=== PATIENT | male | born 1935 | race Caucasian/White ===

== ENCOUNTER 2017-07-10 11:30 | Inpatient (IN) | payer MEDICARE, BC ==
[2017-07-16] MEDS ORDERED: Levofloxacin 500 mg/D5W 100 ml Premix Bag ONE (06:26)
[2017-07-16] MEDS ORDERED: Vancomycin HCl 1.5 GM in Sodium Chloride 0.9% 250 ML 300 ML IVPB SCH (06:30)
[2017-07-16 06:38] LABS: INR-International Normal Ratio 1.1; PTT 27.8 SEC (22.9-36.1); Prothrombin Time 14.4 SEC (12.0-14.7)
[2017-07-16] MEDS ORDERED: Midazolam HCl 2 mg/2 ml Vial ONE (06:48)
[2017-07-16] MEDS ORDERED: Fentanyl 100 MCG/2 ML VIAL ONE (06:48)
[2017-07-16] MEDS ORDERED: Tetracaine HCl/PF 1% 20 MG/2 ML AMP ONE (07:28)
[2017-07-16] MEDS ORDERED: Acetaminophen 500 MG TAB PO PRN (07:34)
[2017-07-16] MEDS ORDERED: HYDROcodone/Acetaminophen 7.5/325 mg Tablet PO PRN (07:34)
[2017-07-16] MEDS ORDERED: B & O PR PRN (07:39)
[2017-07-16] MEDS ORDERED: Promethazine HCl 25 MG/ML VIAL IM PRN (09:50)
[2017-07-16] MEDS ORDERED: Ondansetron HCl/PF 4 MG/2 ML Vial IVP PRN (09:50)
[2017-07-16] MEDS ORDERED: Promethazine HCl 25 MG/ML VIAL SLOW IVP PRN (09:50)
[2017-07-16] MEDS ORDERED: B & O ONE (09:52)
--- NOTE | 2017-07-16 10:38 | OP ---
DATE OF PROCEDURE: 07/16/2017 PREOPERATIVE DIAGNOSES: Urinary retention, bladder outlet obstruction, lower urinary tract symptoms. POSTOPERATIVE DIAGNOSES: Urinary retention, bladder outlet obstruction, lower urinary tract symptoms . PROCEDURE PERFORMED: Cystoscopy, TURP. SURGEON: Dr. Slim Awan. ANESTHESIA: Spinal. ESTIMATED BLOOD LOSS: Probably 100 mL. FINDINGS: He had very large lateral lobes, moderate median lobe, 2 ureteral orifices. No bladder tu mor, foreign body, or stone. He had numerous prosthetic calculi. DRAINS PLACED: A 22-[place] Urbina 3-way catheter with 60 mL and a 30 mL balloon. OPERATIVE TECHNIQUE: After obtaining written and verbal consent from the patient, after reviewing hi s preoperative blood work and after making sure he had his preoperative antibiotics of vancomycin and Levaquin, he was taken to the operating suite. He was placed in a supine position on the treatment table. PlexiPulses were placed on his lower extremities and turned on. He was given a spinal anesth etic and then returned back to the supine position. Once the spinal took effect, he was placed in th e dorsal lithotomy position and sterilely prepped and draped. Cystoscopy was performed with a 22-Fam nch sheath. This was well lubricated and passed under direct vision through the male urethra into th e bladder with aid of a video camera monitor and a 30-degree lens. The bladder was examined with bot h a 30- and 70-degree lenses. He had some debris on the floor. This was related to having indwellin g catheter for the past few weeks. This was washed out and the bladder was filled and emptied a numb er of times. A 24-[place] resectoscope sheath with visual obturator was passed under direct vision wi th a 30-degree lens after being well lubricated through the male urethra and into the bladder. An Ig lesQiro resectoscope with a gyrus generator, gyrus prostate loop, 30-degree lens, video camera monitor were used. Our landmarks, bladder neck, verumontanum, and ureteral orifices were identified. The m edian lobe was taken down from 5-7 o'clock position from bladder neck to just proximal to the verumon tanum down to capsular fibers. The left lobe was taken down from the 1 o'clock to the 5 o'clock posi tion with the same landmarks and the right lobe from the 11 o'clock to the 7 o'clock position. Apica l tissue was removed in half loop bites. Anterior tissue was not resected. We elliked out all clots and chips and stones, reinspected the bladder. No damage to the bladder neck or trigone, ureteral o rifices, verumontanum. We obtained hemostasis with electrocautery unit. Urbina catheter was placed w ith aid of a catheter guide with 60 mL placed in the balloon, was brought down on gentle traction, posada nd irrigated. It was clear. It was hooked up to continuous bladder irrigation. He was taken out of the dorsal lithotomy position. The catheter was secured to his right thigh and mild traction with V elcro leg strap. He was at this point transferred by a stretcher to the recovery room.
[2017-07-16] MEDS ORDERED: PHENYLEPHRINE-NS 100 MCG/ML 10 ML SYRINGE ONE (12:16)
[2017-07-16] MEDS: Losartan 25 MG TAB PO SCH (13:39)
[2017-07-16] MEDS: Finasteride 5 MG TAB PO SCH (13:40)
[2017-07-16] MEDS: Docusate 100 MG CAP PO SCH ×2 (13:40→20:24)
[2017-07-16] MEDS: Loratadine 10 MG TAB PO SCH (13:40)
[2017-07-16 13:48] VITALS: BMI 23.1
[2017-07-16] MEDS: D5 1/2 NS w/20 mEq KCL 1,000 ML IV SCH ×2 (17:49→20:24)
[2017-07-16] MEDS: Atorvastatin Calcium 40 MG TAB PO SCH (20:24)
[2017-07-17] MEDS: D5 1/2 NS w/20 mEq KCL 1,000 ML IV SCH ×2 (05:09→14:55)
[2017-07-17] MEDS ORDERED: Vancomycin HCl 1 GM in Premix Bag 1 BAG IVPB SCH (09:00)
[2017-07-17] MEDS: Losartan 25 MG TAB PO SCH (09:05)
[2017-07-17] MEDS: Docusate 100 MG CAP PO SCH ×2 (09:06→20:29)
[2017-07-17] MEDS: Loratadine 10 MG TAB PO SCH (09:06)
[2017-07-17] MEDS: Finasteride 5 MG TAB PO SCH (09:06)
[2017-07-17] MEDS ORDERED: Labetalol HCl 100 MG/20 ML VIAL SLOW IVP PRN (17:34)
[2017-07-17] MEDS: Atorvastatin Calcium 40 MG TAB PO SCH (20:29)
--- NOTE | 2017-07-17 20:48 | CON ---
DATE OF CONSULTATION: 07/17/2017 PRIMARY CARE PHYSICIAN: Dr. Carmona. REQUESTING PHYSICIAN: Dr. Slim Awan. REASON FOR CONSULTATION: Uncontrolled blood pressure. HISTORY OF PRESENT ILLNESS: Mr. Wall is a pleasant 81-year-old white male with history of hyper tension, hyperlipidemia, and paroxysmal atrial fibrillation with one episode in 2012, who was admitte d for BPH with urinary obstruction for TURP and cystoscopy. He is postop day #1 today. He has done well. His urine is cleared nicely and had his catheter remov ed earlier today. His blood pressure this morning was in the 170s systolic. He was given his normal losartan 100 mg, b ut through the day, his blood pressure steadily risen from the systolic 180s to 190s, then to 200s th is evening. He requested we see the patient for evaluation. The patient denies any discomfort. He states he takes his blood pressure at home regularly and on his losartan, his blood pressure stays in the 120s to 130s systolic. He denies any chest pain, no shortness of breath, no nausea, vomiting, diarrhea, constipation. No ot her discomforts. His at the bedside and corroborates the story. No other current complaints. PAST MEDICAL HISTORY: 1. Hypertension. 2. Hyperlipidemia. 3. Paroxysmal atrial fibrillation. He had an episode of atrial fibrillation in 08/2012, received an echocardiogram, and spontaneously converted. He was kept on Multaq until a few months ago and was t aken off that by Dr. Tang. 4. Benign prostatic hypertrophy as above. 5. Urinary retention due to benign prostatic hypertrophy. PAST SURGICAL HISTORY: Include colon polypectomy, appendectomy, cholecystectomy about 30 to 35 years ago, TURP on 07/16/[address] Fraire. HOME MEDICATIONS: 1. Losartan 100 mg p.o. daily. 2. Lipitor 40 mg p.o. at bedtime. 3. Zyrtec 10 mg p.o. daily. 4. Finasteride 5 mg daily. 5. Aspirin 81 mg daily, which has been off of for the last 2 months, anticipating procedures. ALLERGIES: PENICILLIN caused blistery welts back in 1948. FAMILY HISTORY: Significant for hypertension and coronary artery disease in his mother. No history of blood clotting or bleeding disorders. No immune dysfunction. SOCIAL HISTORY: Negative for habits x3. He is , monogamous. His accompanies him. REVIEW OF SYSTEMS: A 10-point review of systems was performed, negative for all other systems except as stated as per HPI. PHYSICAL EXAMINATION: VITAL SIGNS: Temperature 97.4, pulse 65, blood pressure currently last checked last documented 183/9 1; when I was called, it was 193/106 in the room and I was called for a systolic of 200; respiratory rate 20, satting 99% on room air. GENERAL: He is awake. He is alert. He is oriented x3, well-developed, well-nourished 81-year-old m tracey appears to be age appropriate. He is in no acute distress. HEENT: Normocephalic, atraumatic. Pupils are equal, round, reactive to light bilaterally. Mucous m embranes are moist. No visible lesion. No thrush. NECK: Supple. He has no lymphadenopathy, no JVD, no thyromegaly. He has normal carotid upstrokes. I do not appreciate bruit. LUNGS: Clear to auscultation bilaterally. No wheezes, no rales, no rhonchi. CARDIOVASCULAR: He has normal S1, S2. No S3 or S4. No audible murmurs. ABDOMEN: Soft, is nontender, nondistended, no mass, no organomegaly. EXTREMITIES: No cyanosis, no clubbing, no edema, 2+ peripheral pulses. LABORATORY DATA: Sodium 137, potassium 4.6, chloride 102, bicarbonate 28, BUN 22, creatinine 1.72, g lucose 93 and calcium 9.1 back on 07/10/2017. CBC on 07/10/2017, white blood cell count 7.5, hemoglo bin 11.1, hematocrit 32.7 and platelet count 340,000. INR is 1.1 yesterday. RADIOGRAPHIC STUDIES: None. ASSESSMENT AND PLAN: 1. Hypertension: Blood pressure certainly elevated. We will put him on p.r.n. labetalol q.3 hours 10 mg for systolic greater than 180 without. We will not add any oral agents at present this to see how his blood pressure does overnight. Hopefully, his blood pressure stays relatively controlled and will need to start another agent. 2. Hyperlipidemia, on Lipitor. We will continue. 3. History of paroxysmal atrial fibrillation, not currently on any medications. We will continue to watch. 4. Benign prostatic hyperplasia status post TURP. 5. Urinary retention status post TURP. 6. Acute kidney injury secondary to urinary retention. Per the patient, the creatinine has been imp roving. He has seen Dr. Cedeno in the past. Creatinine 1.72, recheck in the morning. Thank you very much for this consult. I will follow along with you.
[2017-07-18] MEDS: Finasteride 5 MG TAB PO SCH (08:32)
[2017-07-18] MEDS: Losartan 25 MG TAB PO SCH (08:32)
[2017-07-18] MEDS: Loratadine 10 MG TAB PO SCH (08:32)
[2017-07-18] MEDS: Docusate 100 MG CAP PO SCH (08:33)
[2017-07-18 09:11] VITALS: BP 151/82; TEMP 97.7
--- NOTE | 2017-07-18 12:44 | PDOC.PN ---
- Subjective Encounter Start Date: 07/18/17 Encounter Start Time: 10:20 Pt feel good today, urine clearer, no pain. denies f/C, no N/V/d/C. BP much improved overnight, SBP 150 before AM meds today 10 point ROS performed and neg for all systems except as per HPI - Objective MAR Reviewed: Yes Vital Signs & Weight: Vital Signs (12 hours) Temp Pulse Resp BP Pulse Ox 07/18/17 09:10 97.7 F 97 16 151/82 H 98 07/18/17 07:55 97.7 F 97 16 151/82 H 98 07/18/17 04:49 98.3 F 70 18 155/79 H 97 Weight Weight 175 lb I&O: 07/17/17 07/18/17 07/19/17 06:59 06:59 06:59 Intake Total 2850 4700 Output Total 3100 6425 Balance -250 -1720 Phys Exam - Physical Examination Constitutional: NAD HEENT: PERRLA, moist MMs, sclera anicteric, oral pharynx no lesions Neck: no nodes, no JVD, supple, full ROM Respiratory: no wheezing, no rales, no rhonchi, clear to auscultation bilateral Cardiovascular: RRR, no significant murmur, no rub Gastrointestinal: soft, non-tender, no distention, positive bowel sounds Musculoskeletal: no edema, pulses present Neurological: non-focal, normal sensation, moves all 4 limbs Lymphatic: no nodes Psychiatric: normal affect, A&O x 3 Skin: no rash, normal turgor, cap refill <2 seconds Dx/Plan (1) HTN (hypertension) Code(s): I10 - ESSENTIAL (PRIMARY) HYPERTENSION Status: Chronic Qualifiers: Hypertension type: essential hypertension Qualified Code(s): I10 - Essential (primary) hypertension (2) HLD (hyperlipidemia) Code(s): E78.5 - HYPERLIPIDEMIA, UNSPECIFIED Status: Chronic Qualifiers: Hyperlipidemia type: unspecified Qualified Code(s): E78.5 - Hyperlipidemia , unspecified (3) Anxiety Code(s): F41.9 - ANXIETY DISORDER, UNSPECIFIED Status: Chronic (4) BPH (benign prostatic hyperplasia) Code(s): N40.0 - BENIGN PROSTATIC HYPERPLASIA WITHOUT LOWER URINRY TRACT SYMP Status: Chronic Qualifiers: Lower urinary tract symptom presence: symptoms present Lower urinary tract symptom detail: urinary retention Qualified Code(s): N40.1 - Benign prostatic hyperplasia with lower urinary tract symptoms; R33.8 - Other retention of urine ; R33.8 - Other retention of urine (5) S/P TURP (status post transurethral resection of prostate) Code(s): Z90.79 - ACQUIRED ABSENCE OF OTHER GENITAL ORGAN(S) Status: Acute - Plan cont current plan of care * . no new meds. Okay to go home. continue daily Losartan.
== END 2017-07-18 11:54 | disposition home or self-care (01) | DRG 713 ==
LOC: SURG A 07-16 05:45 → EDSTATUS 07-16 11:30 → SURG A 07-16 12:11
PROVIDERS: ADMIT Urology; ATTEND Urology
PROC: 0VT08ZZ Resection of Prostate, Via Natural or Artificial Opening Endoscopic (ICD-10-PCS; principal; 2017-07-16)
DX: N40.1 Benign prostatic hyperplasia with lower urinary tract symptoms (principal); N17.9 Acute kidney failure, unspecified; N13.8 Other obstructive and reflux uropathy; R33.8 Other retention of urine; I10 Essential (primary) hypertension; E78.5 Hyperlipidemia, unspecified; F41.9 Anxiety disorder, unspecified; Z86.79 Personal history of other diseases of the circulatory system
CPT/HCPCS: 85610; 85730; 88305; J1956; J2250; J3010; J3370; J7050

== ENCOUNTER 2017-07-10 11:48 | Outpatient (CLI) | payer MEDICARE, BC ==
[2017-07-10 13:18] LABS: Hemoglobin 11.1 g/dL (14.0-18.0); Mean Corpuscular HGB CONC 33.7 g/dL (32.0-36.0); Mean Corpuscular Hemoglobin 31.4 pg (27.0-31.0); Mean Corpuscular Volume 93.2 fl (80.0-94.0); Mean Platelet Volume 5.9 fL (7.4-10.4); Platelet Count 340 thou/uL (130-400); RBC Distribution Width 11.5 % (11.5-14.5); Red Blood Cell (RBC) Count 3.53 mill/uL (4.70-6.10); White Blood Cell (WBC) Count 7.5 thou/uL (4.8-10.8)
[2017-07-10 13:48] LABS: Anion Gap 12 mmol/L (10-20); BUN (Urea Nitrogen) 22 mg/dL (8.4-25.7); Calc. Creatinine Clearance 0 mL/min (70-130); Calcium 9.1 mg/dL (7.8-10.44); Carbon Dioxide 28 mmol/L (23-31); Chloride 102 mmol/L (98-107); Estimated GFR-MDRD 38; Glucose 93 mg/dL (83-110); Potassium 4.6 mmol/L (3.5-5.1); Sodium 137 mmol/L (136-145)
--- NOTE | 2017-07-10 21:06 | EKG ---
Test Reason : Blood Pressure : / mmHG Vent. Rate : 062 BPM Atrial Rate : 062 BPM P-R Int : 186 ms QRS Dur : 094 ms QT Int : 428 ms P-R-T Axes : 062 054 073 degrees QTc Int : 434 ms Normal sinus rhythm with sinus arrhythmia Normal ECG No previous ECGs available Confirmed by DIMITRI SAENZ ([id number]) on 07/10/2017 9:05:49 PM Referred By: TREVON Confirmed By:DIMITRI SAENZ
== END 2017-07-10 11:49 | disposition home or self-care (01) ==
LOC: LABBT 11:48
PROVIDERS: ATTEND Urology
DX: Z01.818 Encounter for other preprocedural examination (principal); N32.0 Bladder-neck obstruction; R33.8 Other retention of urine
CPT/HCPCS: 80048; 85027; 93005; 93010

== ENCOUNTER 2022-09-05 07:25 | Outpatient (CLI) | payer MEDICARE, BC ==
[2022-09-05] MEDS ORDERED: Iopamidol-370 76% 500 ML MDV (1 ML CHARGE) ONE (09:35)
== END 2022-09-05 07:26 | disposition home or self-care (01) ==
LOC: CT 07:25
PROVIDERS: ATTEND Internal Medicine Cardiovascular Disease
DX: I71.21 Aneurysm of the ascending aorta, without rupture (principal); N28.89 Other specified disorders of kidney and ureter; E04.1 Nontoxic single thyroid nodule; I28.1 Aneurysm of pulmonary artery
CPT/HCPCS: 71275; 82565; Q9967

== ENCOUNTER 2024-06-10 22:11 | Inpatient (IN) | payer MEDICARE, BC ==
[2024-06-10 22:52] LABS: #Basophils Less than 0.03 10x3/uL (0.0-0.2); %Basophils 0.2 % (0.0-1.0); %Eosinophils 0.5 % (0.0-10.0); %Monocytes 7.4 % (0.0-10.0); %Neutrophils 74.1 % (42.0-75.0); Hemoglobin 11.6 g/dL (14.0-18.0); Mean Corpuscular HGB CONC 34.1 g/dL (32.0-36.0); Mean Corpuscular Hemoglobin 32.1 pg (27.0-31.0); Mean Corpuscular Volume 94.2 fL (78.0-98.0); Platelet Count 222 10x3/uL (130-400); Red Blood Cell (RBC) Count 3.61 mill/uL (4.70-6.10)
[2024-06-10 23:05] LABS: INR-International Normal Ratio 1.3; Prothrombin Time 16.4 sec (12.0-14.7)
[2024-06-10 23:08] LABS: ALT (SGPT) 33 U/L (8-55); AST (SGOT) 28 U/L (5-34); Albumin 3.5 g/dL (3.4-4.8); Alkaline Phosphatase 67 U/L (40-110); Anion Gap 15 mmol/L (10-20); BUN (Urea Nitrogen) 29 mg/dL (8.4-25.7); Bilirubin, Total 0.7 mg/dL (0.2-1.2); Calc. Creatinine Clearance 0 mL/min (70-130); Calcium 9.5 mg/dL (7.8-10.44); Carbon Dioxide 24 mmol/L (23-31); Chloride 102 mmol/L (98-107); Estimated GFR 62; Globulin 2.9 g/dL (2.4-3.5); Glucose 113 mg/dL (83-110); Lipase 33 U/L (8-78); Potassium 4.8 mmol/L (3.5-5.1); Protein, Total 6.4 g/dL (5.8-8.1); Sodium 136 mmol/L (136-145)
[2024-06-10 23:13] LABS: Troponin I 0.084 ng/mL (< 0.028)
[2024-06-10] MEDS ORDERED: Aspirin Chewable 81 MG TAB ONE (23:41)
[2024-06-10] MEDS ORDERED: dilTIAZem 25 MG/5 ML VIAL ONE (23:41)
[2024-06-10] MEDS ORDERED: dilTIAZem 125 MG/25 ML SDV ONE ×2 (23:42→23:46)
[2024-06-10] MEDS ORDERED: Sodium Chloride 0.9% 100 ML ONE (23:43)
[2024-06-11] MEDS ORDERED: Metoprolol Tartrate 5 MG (5 mL) VIAL ONE ×2 (01:03→02:02)
[2024-06-11] MEDS ORDERED: Insulin Lispro 100 UNIT/ML 10 ML VIAL SC PRN (01:54)
[2024-06-11] MEDS ORDERED: Dextrose 50% Abboject 50 ML SYRINGE SLOW IVP PRN (01:54)
[2024-06-11] MEDS ORDERED: Ondansetron PF 4 MG/2 ML Vial IVP PRN (01:54)
[2024-06-11] MEDS ORDERED: Glucagon 1 MG/ML KIT IM PRN (01:54)
[2024-06-11] MEDS ORDERED: traMADol HCl 50 MG TAB PO PRN (01:54)
[2024-06-11] MEDS ORDERED: Dextrose 5% in Water 1,000 ML IV PRN (01:54)
[2024-06-11] MEDS ORDERED: Calcium Carbonate 500 MG ChewTAB PO PRN (02:12)
[2024-06-11] MEDS ORDERED: Acetaminophen 650 MG Suppository PR PRN (02:12)
[2024-06-11] MEDS ORDERED: Ondansetron ODT 4 MG TAB PO PRN (02:12)
[2024-06-11] MEDS ORDERED: Furosemide 40 MG (4 mL) VIAL ONE (02:30)
[2024-06-11] MEDS ORDERED: Sodium Chloride 0.9% 100 ML ONE (02:30)
[2024-06-11] MEDS ORDERED: Piperacillin/Tazobactam 3.375 GM VIAL ONE (02:30)
[2024-06-11 03:38] LABS: #Basophils Less than 0.03 10x3/uL (0.0-0.2); #Eosinophils Less than 0.03 10x3/uL (0.0-0.7); %Basophils 0.2 % (0.0-1.0); %Eosinophils 0.2 % (0.0-10.0); %Lymphocytes 15.5 % (21.0-51.0); %Monocytes 7.1 % (0.0-10.0); %Neutrophils 76.5 % (42.0-75.0); Hematocrit 34.5 % (42.0-52.0); Hemoglobin 11.4 g/dL (14.0-18.0); Mean Corpuscular Hemoglobin 31.8 pg (27.0-31.0); Mean Corpuscular Volume 96.4 fL (78.0-98.0); Mean Platelet Volume 8.5 fL (7.4-10.4); Platelet Count 191 10x3/uL (130-400); RBC Distribution Width 12.9 % (11.5-14.5); Red Blood Cell (RBC) Count 3.58 mill/uL (4.70-6.10)
[2024-06-11 03:52] LABS: Anion Gap 11 mmol/L (10-20); BUN (Urea Nitrogen) 25 mg/dL (8.4-25.7); Calc. Creatinine Clearance 0 mL/min (70-130); Calcium 9.5 mg/dL (7.8-10.44); Carbon Dioxide 26 mmol/L (23-31); Chloride 103 mmol/L (98-107); Estimated GFR 62; Glucose 127 mg/dL (83-110); INR-International Normal Ratio 1.3; Potassium 4.2 mmol/L (3.5-5.1); Prothrombin Time 16.4 sec (12.0-14.7); Sodium 136 mmol/L (136-145)
[2024-06-11 03:53] VITALS: BMI 20.5
[2024-06-11 03:58] LABS: Troponin I 0.083 ng/mL (< 0.028)
[2024-06-11] MEDS: Metoprolol Tartrate 5 MG (5 mL) VIAL IVP SCH ×2 (04:39→08:56)
[2024-06-11 05:00] LABS: Troponin I 0.091 ng/mL (< 0.028)
[2024-06-11] MEDS: Famotidine 20 MG TAB PO SCH (08:13)
[2024-06-11] MEDS: Famotidine/PF 20 mg/2ml Vial SLOW IVP SCH (08:14)
[2024-06-11] MEDS: dilTIAZem 125 MG in Sodium Chloride 0.9% 100 ML IVPB SCH (08:31)
[2024-06-11] MEDS: Digoxin 0.5 MG/2 ML AMP SLOW IVP SCH (10:17)
[2024-06-11] MEDS: Acetaminophen 325 MG TAB PO PRN (10:45)
[2024-06-11 12:49] LABS: #Basophils Less than 0.03 10x3/uL (0.0-0.2); #Eosinophils Less than 0.03 10x3/uL (0.0-0.7); %Basophils 0.2 % (0.0-1.0); %Eosinophils 0.1 % (0.0-10.0); %Lymphocytes 10.2 % (21.0-51.0); %Monocytes 7.5 % (0.0-10.0); %Neutrophils 81.7 % (42.0-75.0); Hematocrit 34.1 % (42.0-52.0); Hemoglobin 11.5 g/dL (14.0-18.0); Mean Corpuscular HGB CONC 33.7 g/dL (32.0-36.0); Mean Corpuscular Hemoglobin 32.8 pg (27.0-31.0); Mean Corpuscular Volume 97.2 fL (78.0-98.0); Mean Platelet Volume 8.5 fL (7.4-10.4); Platelet Count 202 10x3/uL (130-400); Red Blood Cell (RBC) Count 3.51 mill/uL (4.70-6.10)
[2024-06-11] MEDS: Dronedarone HCl 400 MG TAB PO SCH ×2 (13:58)
[2024-06-11] MEDS ORDERED: Iopamidol-370 76% 500 ML MDV (1 ML CHARGE) ONE (15:31)
[2024-06-11 16:31] LABS: Hematocrit 37.6 % (42.0-52.0); Hemoglobin 12.3 g/dL (14.0-18.0)
[2024-06-12 03:53] LABS: Calc. Creatinine Clearance 35 mL/min (70-130); Estimated GFR 46
[2024-06-12 03:55] LABS: Anion Gap 13 mmol/L (10-20); BUN (Urea Nitrogen) 27 mg/dL (8.4-25.7); Carbon Dioxide 26 mmol/L (23-31); Chloride 102 mmol/L (98-107); Glucose 118 mg/dL (83-110); Magnesium 1.9 mg/dL (1.6-2.6); Potassium 3.7 mmol/L (3.5-5.1); Sodium 137 mmol/L (136-145)
[2024-06-12] MEDS: Dronedarone HCl 400 MG TAB PO SCH (08:42)
[2024-06-12] MEDS ORDERED: PROPOFOL 40 ML ONE (10:52)
[2024-06-12] MEDS ORDERED: Lidocaine 1% PF 5 ML VIAL ONE (11:13)
[2024-06-12] MEDS ORDERED: PHENYLEPHRINE-NS 100 MCG/ML 10 ML SYRINGE ONE (11:13)
[2024-06-12] MEDS ORDERED: Ondansetron HCl/PF 4 MG/2 ML Vial IVP PRN (11:32)
[2024-06-12] MEDS: Metoprolol Succinate XL 25 MG ER.TAB PO SCH (17:58)
[2024-06-12] MEDS: Apixaban 5 MG TAB PO SCH (20:45)
[2024-06-13 02:21] LABS: #Basophils 0.03 10x3/uL (0.0-0.2); %Basophils 0.3 % (0.0-1.0); %Eosinophils 2.6 % (0.0-10.0); %Lymphocytes 14.9 % (21.0-51.0); %Monocytes 8.2 % (0.0-10.0); %Neutrophils 73.5 % (42.0-75.0); Mean Corpuscular HGB CONC 33.3 g/dL (32.0-36.0); Mean Corpuscular Hemoglobin 32.3 pg (27.0-31.0); Mean Corpuscular Volume 96.8 fL (78.0-98.0); Mean Platelet Volume 8.6 fL (7.4-10.4); Platelet Count 204 10x3/uL (130-400); RBC Distribution Width 12.8 % (11.5-14.5)
[2024-06-13 03:10] LABS: Thyroid Stimulating Hormone 1.1425 uIU/mL (0.35-4.94)
[2024-06-13 03:41] LABS: ALT (SGPT) 22 U/L (8-55); AST (SGOT) 18 U/L (5-34); Albumin 2.7 g/dL (3.4-4.8); Alkaline Phosphatase 53 U/L (40-110); Anion Gap 11 mmol/L (10-20); BUN (Urea Nitrogen) 30 mg/dL (8.4-25.7); Bilirubin, Total 0.7 mg/dL (0.2-1.2); CK (CPK) 68 U/L (30-200); Calc. Creatinine Clearance 38 mL/min (70-130); Calcium 9.2 mg/dL (7.8-10.44); Carbon Dioxide 23 mmol/L (23-31); Cardiac Risk 2.2 (Less than 4.5); Chloride 105 mmol/L (98-107); Cholesterol 91 mg/dl (< 200 Desired); Estimated GFR 51; Globulin 2.8 g/dL (2.4-3.5); Glucose 101 mg/dL (83-110); HDL Cholesterol 41 mg/dL (>60 Neg Risk); LDL Cholesterol, Calculated 40 mg/dL; Protein, Total 5.5 g/dL (5.8-8.1); Sodium 135 mmol/L (136-145); Triglycerides 51 mg/dL (Less than 150)
[2024-06-13] MEDS: Metoprolol Succinate XL 25 MG ER.TAB PO SCH (07:47)
[2024-06-13] MEDS: Docusate 100 MG CAP PO SCH ×2 (12:50→20:08)
[2024-06-13 13:53] LABS: Syphilis Antibody Nonreactive (Nonreactive); Syphilis Antibody Index 0.06 S/CO (<1.00 Non-Reactive)
[2024-06-13] MEDS: Cyanocobalamin 1000 MCG/ML VIAL SC SCH (16:58)
[2024-06-13] MEDS: Metoprolol Tartrate 5 MG (5 mL) VIAL IVP SCH (22:14)
[2024-06-14] MEDS: Metoprolol Tartrate 5 MG (5 mL) VIAL IVP SCH (02:45)
[2024-06-14] MEDS: dilTIAZem 125 MG in Sodium Chloride 0.9% 100 ML IVPB SCH (04:10)
[2024-06-14 05:04] LABS: #Basophils 0.03 10x3/uL (0.0-0.2); %Basophils 0.3 % (0.0-1.0); %Eosinophils 3.2 % (0.0-10.0); %Lymphocytes 18.6 % (21.0-51.0); %Monocytes 7.4 % (0.0-10.0); %Neutrophils 70.1 % (42.0-75.0); Hematocrit 30.7 % (42.0-52.0); Hemoglobin 10.3 g/dL (14.0-18.0); Mean Corpuscular HGB CONC 33.6 g/dL (32.0-36.0); Mean Corpuscular Hemoglobin 31.6 pg (27.0-31.0); Mean Corpuscular Volume 94.2 fL (78.0-98.0); Mean Platelet Volume 8.5 fL (7.4-10.4); Platelet Count 242 10x3/uL (130-400); RBC Distribution Width 12.5 % (11.5-14.5); Red Blood Cell (RBC) Count 3.26 mill/uL (4.70-6.10)
[2024-06-14 05:21] LABS: Anion Gap 12 mmol/L (10-20); BUN (Urea Nitrogen) 28 mg/dL (8.4-25.7); Calc. Creatinine Clearance 40 mL/min (70-130); Calcium 9.4 mg/dL (7.8-10.44); Carbon Dioxide 23 mmol/L (23-31); Chloride 104 mmol/L (98-107); Estimated GFR 54; Glucose 106 mg/dL (83-110); Magnesium 2.1 mg/dL (1.6-2.6); Sodium 135 mmol/L (136-145)
[2024-06-14] MEDS: Acetaminophen/Codeine 30-300mg Tablet PO PRN (05:59)
[2024-06-14] MEDS ORDERED: Polyethylene Glycol 3350 17 GM Packet PO PRN (10:54)
[2024-06-14] MEDS: Magnesium 2 GM/50 ML(in water) 2 GM in Premix 1 BAG IVPB SCH (12:00)
[2024-06-14] MEDS: Folic Acid 1 MG TAB PO SCH (20:03)
[2024-06-14] MEDS: Multivit, Therapeutic 1 TAB PO SCH (20:03)
[2024-06-14] MEDS: Senokot S 8.6-50 MG TAB PO SCH (20:03)
[2024-06-14] MEDS: Cholecalciferol 1,000 UNITS (25 MCG) TAB PO SCH (20:03)
[2024-06-14] MEDS: Cyanocobalamin (Vitamin B-12) 1,000 MCG TAB PO SCH (20:03)
[2024-06-14] MEDS: dilTIAZem 30 MG TAB PO PRN (20:03)
[2024-06-15] MEDS: dilTIAZem 125 MG in Sodium Chloride 0.9% 100 ML IVPB SCH ×2 (01:18→12:39)
[2024-06-15 03:42] LABS: #Basophils 0.03 10x3/uL (0.0-0.2); %Basophils 0.3 % (0.0-1.0); %Eosinophils 3.2 % (0.0-10.0); %Lymphocytes 25.4 % (21.0-51.0); %Monocytes 8.2 % (0.0-10.0); %Neutrophils 62.4 % (42.0-75.0); Hematocrit 32.5 % (42.0-52.0); Hemoglobin 10.9 g/dL (14.0-18.0); Mean Corpuscular HGB CONC 33.5 g/dL (32.0-36.0); Mean Corpuscular Volume 95.3 fL (78.0-98.0); Mean Platelet Volume 8.6 fL (7.4-10.4); Platelet Count 284 10x3/uL (130-400); RBC Distribution Width 12.8 % (11.5-14.5); Red Blood Cell (RBC) Count 3.41 mill/uL (4.70-6.10)
[2024-06-15 04:00] LABS: Anion Gap 13 mmol/L (10-20); BUN (Urea Nitrogen) 37 mg/dL (8.4-25.7); Calc. Creatinine Clearance 35 mL/min (70-130); Calcium 9.1 mg/dL (7.8-10.44); Carbon Dioxide 24 mmol/L (23-31); Chloride 106 mmol/L (98-107); Estimated GFR 46; Glucose 104 mg/dL (83-110); Potassium 4.5 mmol/L (3.5-5.1); Sodium 138 mmol/L (136-145)
[2024-06-15] MEDS: Polyethylene Glycol 3350 17 GM Packet PO SCH (11:19)
[2024-06-15] MEDS: Senokot S 8.6-50 MG TAB PO SCH ×2 (11:19→21:49)
[2024-06-15] MEDS: dilTIAZem 30 MG TAB PO SCH (11:44)
[2024-06-15] MEDS: Digoxin 0.5 MG/2 ML AMP SLOW IVP SCH (12:38)
[2024-06-15] MEDS ORDERED: Bisacodyl 10 MG SUPP PR SCH (21:00)
[2024-06-15] MEDS: Bisacodyl 10 MG SUPP PR SCH (21:49)
[2024-06-16 04:48] LABS: #Basophils 0.03 10x3/uL (0.0-0.2); %Basophils 0.3 % (0.0-1.0); %Eosinophils 3.1 % (0.0-10.0); %Lymphocytes 21.3 % (21.0-51.0); %Monocytes 7.5 % (0.0-10.0); %Neutrophils 67.2 % (42.0-75.0); Hematocrit 29.3 % (42.0-52.0); Mean Corpuscular HGB CONC 34.1 g/dL (32.0-36.0); Mean Corpuscular Hemoglobin 32.1 pg (27.0-31.0); Mean Corpuscular Volume 93.9 fL (78.0-98.0); Mean Platelet Volume 8.4 fL (7.4-10.4); Platelet Count 266 10x3/uL (130-400); RBC Distribution Width 12.6 % (11.5-14.5); Red Blood Cell (RBC) Count 3.12 mill/uL (4.70-6.10)
[2024-06-16 06:12] LABS: Anion Gap 10 mmol/L (10-20); BUN (Urea Nitrogen) 39 mg/dL (8.4-25.7); Calc. Creatinine Clearance 40 mL/min (70-130); Calcium 9.1 mg/dL (7.8-10.44); Carbon Dioxide 24 mmol/L (23-31); Chloride 104 mmol/L (98-107); Estimated GFR 50; Glucose 97 mg/dL (83-110); Magnesium 2.2 mg/dL (1.6-2.6); Potassium 4.5 mmol/L (3.5-5.1); Sodium 133 mmol/L (136-145)
[2024-06-16] MEDS: Furosemide 20 MG TAB PO SCH (11:00)
[2024-06-16] MEDS: Polyethylene Glycol 3350 17 GM Packet PO SCH (11:43)
[2024-06-16] MEDS: Potassium Chloride 20 MEQ TAB PO SCH (11:43)
[2024-06-16 12:22] VITALS: TEMP 98.2
[2024-06-16 14:03] VITALS: BP 130/62
[2024-06-16] MEDS: Losartan 25 MG TAB PO SCH (14:55)
[2024-06-16] MEDS ORDERED: Polyethylene Glycol 3350 17 GM Packet PO SCH (21:00)
== END 2024-06-16 15:56 | DRG 280 ==
LOC: ERS 22:11 → IMCU/EMU 06-11 02:15 → 2NO 06-13 21:23
PROVIDERS: ADMIT Student in an Organized Health Care Education/Training Program; ATTEND Internal Medicine
PROC: 5A2204Z Restoration of Cardiac Rhythm, Single (ICD-10-PCS; principal; 2024-06-12)
PROC: B245ZZ4 Ultrasonography of Left Heart, Transesophageal (ICD-10-PCS; 2024-06-13)
DX: I48.91 Unspecified atrial fibrillation (principal); G93.41 Metabolic encephalopathy; I21.A1 Myocardial infarction type 2; E44.0 Moderate protein-calorie malnutrition; N17.9 Acute kidney failure, unspecified; W19.XXXA Unspecified fall, initial encounter; Z79.01 Long term (current) use of anticoagulants; E78.5 Hyperlipidemia, unspecified; M62.89 Other specified disorders of muscle; N18.9 Chronic kidney disease, unspecified; I12.9 Hypertensive chronic kidney disease with stage 1 through stage 4 chronic kidney disease, or unspecified chronic kidney disease; Z68.22 Body mass index [BMI] 22.0-22.9, adult; Z88.0 Allergy status to penicillin; Z79.890 Hormone replacement therapy; Z79.891 Long term (current) use of opiate analgesic; Z79.82 Long term (current) use of aspirin; Z79.899 Other long term (current) drug therapy
CPT/HCPCS: 36415; 36416; 70450; 71045; 71275; 72125; 72170; 74177; 80048; 80053; 80061; 82550; 82607; 83605; 83690; 83735; 83880; 84443; 84484; 85025; 85610; 85730; 86780; 92960; 93005; 93010; 93312; 96374; 96375; 96376; J1160; J1940; J2543; J2704; J3420; J3475; J3490; Q9967

== ENCOUNTER 2024-06-18 12:24 | Inpatient (IN) | payer MEDICARE, BC ==
[2024-06-18] MEDS ORDERED: dilTIAZem 125 MG/25 ML SDV ONE (12:57)
[2024-06-18] MEDS ORDERED: Acetaminophen 500 MG TAB ONE (12:59)
[2024-06-18 13:03] LABS: #Basophils 0.05 10x3/uL (0.0-0.2); %Basophils 0.4 % (0.0-1.0); %Eosinophils 1.2 % (0.0-10.0); %Lymphocytes 19.6 % (21.0-51.0); %Monocytes 7.6 % (0.0-10.0); %Neutrophils 70.4 % (42.0-75.0); Hemoglobin 11.9 g/dL (14.0-18.0); Mean Corpuscular Hemoglobin 32.1 pg (27.0-31.0); Mean Corpuscular Volume 94.3 fL (78.0-98.0); Mean Platelet Volume 8.3 fL (7.4-10.4); Platelet Count 418 10x3/uL (130-400); RBC Distribution Width 12.8 % (11.5-14.5); Red Blood Cell (RBC) Count 3.71 mill/uL (4.70-6.10)
[2024-06-18 13:20] LABS: ALT (SGPT) 23 U/L (8-55); AST (SGOT) 19 U/L (5-34); Albumin 2.9 g/dL (3.4-4.8); Alkaline Phosphatase 74 U/L (40-110); Anion Gap 13 mmol/L (10-20); BUN (Urea Nitrogen) 40 mg/dL (8.4-25.7); Bilirubin, Total 1.1 mg/dL (0.2-1.2); Calc. Creatinine Clearance 0 mL/min (70-130); Calcium 9.2 mg/dL (7.8-10.44); Carbon Dioxide 23 mmol/L (23-31); Chloride 99 mmol/L (98-107); Estimated GFR 49; Globulin 3.2 g/dL (2.4-3.5); Glucose 107 mg/dL (83-110); Magnesium 2.4 mg/dL (1.6-2.6); Potassium 4.6 mmol/L (3.5-5.1); Protein, Total 6.1 g/dL (5.8-8.1); Sodium 130 mmol/L (136-145)
[2024-06-18 13:21] LABS: INR-International Normal Ratio 1.5; PTT 39.1 sec (22.9-36.1); Prothrombin Time 18.3 sec (12.0-14.7)
[2024-06-18 13:30] LABS: Troponin I 0.092 ng/mL (< 0.028)
[2024-06-18 16:51] LABS: Troponin I 0.092 ng/mL (< 0.028)
[2024-06-18 17:08] VITALS: BMI 21.7
[2024-06-18] MEDS ORDERED: Ondansetron ODT 4 MG TAB PO PRN (17:36)
[2024-06-18] MEDS ORDERED: Loperamide HCl 2 MG CAP PO PRN ×2 (17:36)
[2024-06-18] MEDS ORDERED: Ondansetron PF 4 MG/2 ML Vial IVP PRN (17:36)
[2024-06-18] MEDS ORDERED: Acetaminophen 650 MG Suppository PR PRN (17:36)
[2024-06-18] MEDS ORDERED: traMADol HCl 50 MG TAB PO PRN (17:36)
[2024-06-18 18:26] LABS: Bacteria/HPF None Seen HPF (None Seen); Bilirubin Negative (Negative); Blood, Urine Negative (Negative); CAUTI Indications for Culture Dysuria,urgency,freq; Clarity Clear (Clear); Glucose, Urine (Dipstick) Normal (Negative); Ketone, Urine Negative (Negative); Leukocyte Negative Leu/uL (Negative); Nitrite Negative (Negative); Protein, Urine (Dipstick) Negative (Neg-Trace); RBC/HPF 0-3 HPF (0-3); Specific Gravity, Urine 1.014 (1.002-1.036); Squamous Epithelial 0-3 HPF (0-3); Urobilinogen Normal mg/dL (Less than 2); WBC/HPF 0-3 HPF (0-3); pH, Urine 6.5 (5.0-9.0)
[2024-06-18 18:29] LABS: Urine Culture Reflex No No
[2024-06-18 19:43] LABS: Troponin I 0.081 ng/mL (< 0.028)
[2024-06-18] MEDS: Acetaminophen 325 MG TAB PO PRN (20:37)
[2024-06-18] MEDS: Atorvastatin Calcium 40 MG TAB PO SCH (20:38)
[2024-06-18] MEDS: Apixaban 5 MG TAB PO SCH (20:38)
[2024-06-18] MEDS: Famotidine 20 MG TAB PO SCH (20:38)
[2024-06-18] MEDS: Multivit, Therapeutic 1 TAB PO SCH (20:38)
[2024-06-19 04:46] LABS: #Basophils 0.03 10x3/uL (0.0-0.2); %Basophils 0.3 % (0.0-1.0); %Eosinophils 2.1 % (0.0-10.0); %Lymphocytes 22.9 % (21.0-51.0); %Monocytes 7.7 % (0.0-10.0); Hematocrit 30.8 % (42.0-52.0); Hemoglobin 10.7 g/dL (14.0-18.0); Mean Corpuscular HGB CONC 34.7 g/dL (32.0-36.0); Mean Corpuscular Hemoglobin 32.2 pg (27.0-31.0); Mean Corpuscular Volume 92.8 fL (78.0-98.0); Mean Platelet Volume 8.5 fL (7.4-10.4); Platelet Count 389 10x3/uL (130-400); RBC Distribution Width 12.8 % (11.5-14.5); Red Blood Cell (RBC) Count 3.32 mill/uL (4.70-6.10)
[2024-06-19 05:19] LABS: Anion Gap 10 mmol/L (10-20); BUN (Urea Nitrogen) 35 mg/dL (8.4-25.7); Calc. Creatinine Clearance 46 mL/min (70-130); Calcium 8.9 mg/dL (7.8-10.44); Carbon Dioxide 22 mmol/L (23-31); Chloride 101 mmol/L (98-107); Estimated GFR 60; Glucose 102 mg/dL (83-110); Potassium 4.3 mmol/L (3.5-5.1); Sodium 129 mmol/L (136-145)
[2024-06-19] MEDS ORDERED: Metoprolol Succinate XL 25 MG ER.TAB PO SCH (09:00)
[2024-06-19] MEDS: Dronedarone HCl 400 MG TAB PO SCH (09:01)
[2024-06-19] MEDS: Metoprolol Succinate XL 25 MG ER.TAB PO SCH (09:02)
[2024-06-19] MEDS: dilTIAZem 125 MG in Sodium Chloride 0.9% 100 ML IVPB SCH ×2 (14:54→23:52)
[2024-06-19] MEDS: Amiodarone 450 MG in Dextrose 5% in Water 250 ML IVPB SCH (18:53)
[2024-06-20 05:25] LABS: #Basophils 0.04 10x3/uL (0.0-0.2); %Basophils 0.3 % (0.0-1.0); %Eosinophils 1.5 % (0.0-10.0); %Lymphocytes 20.3 % (21.0-51.0); %Monocytes 6.9 % (0.0-10.0); %Neutrophils 70.1 % (42.0-75.0); Hematocrit 28.8 % (42.0-52.0); Hemoglobin 10.2 g/dL (14.0-18.0); Mean Corpuscular HGB CONC 35.4 g/dL (32.0-36.0); Mean Corpuscular Hemoglobin 32.4 pg (27.0-31.0); Mean Corpuscular Volume 91.4 fL (78.0-98.0); Mean Platelet Volume 8.2 fL (7.4-10.4); Platelet Count 374 10x3/uL (130-400); RBC Distribution Width 12.9 % (11.5-14.5); Red Blood Cell (RBC) Count 3.15 mill/uL (4.70-6.10)
[2024-06-20 05:43] LABS: Anion Gap 9 mmol/L (10-20); BUN (Urea Nitrogen) 35 mg/dL (8.4-25.7); Calc. Creatinine Clearance 39 mL/min (70-130); Carbon Dioxide 23 mmol/L (23-31); Chloride 100 mmol/L (98-107); Estimated GFR 50; Glucose 101 mg/dL (83-110); Potassium 4.2 mmol/L (3.5-5.1); Sodium 128 mmol/L (136-145)
[2024-06-20] MEDS: Famotidine 20 MG TAB PO SCH (08:54)
[2024-06-20] MEDS: Polyethylene Glycol 3350 17 GM Packet PO SCH (08:54)
[2024-06-20] MEDS: Senokot S 8.6-50 MG TAB PO SCH (08:54)
[2024-06-20] MEDS: Cyanocobalamin (Vitamin B-12) 1,000 MCG TAB PO SCH (08:54)
[2024-06-20] MEDS ORDERED: Polyethylene Glycol 3350 17 GM Packet PO PRN (11:13)
[2024-06-20] MEDS: Sodium Chloride 1 GM TAB PO SCH (12:22)
[2024-06-20] MEDS ORDERED: Electrolyte Replacement Protocol FS PRN (13:15)
[2024-06-20] MEDS: Electrolyte Replacement Protocol 1 EACH FS ONE (14:57)
[2024-06-20] MEDS: Melatonin 3 MG TAB PO SCH (21:54)
[2024-06-21 05:12] LABS: #Basophils 0.03 10x3/uL (0.0-0.2); %Basophils 0.3 % (0.0-1.0); %Eosinophils 1.8 % (0.0-10.0); %Monocytes 7.6 % (0.0-10.0); %Neutrophils 64.4 % (42.0-75.0); Hematocrit 30.6 % (42.0-52.0); Hemoglobin 10.6 g/dL (14.0-18.0); Mean Corpuscular HGB CONC 34.6 g/dL (32.0-36.0); Mean Corpuscular Hemoglobin 31.8 pg (27.0-31.0); Mean Corpuscular Volume 91.9 fL (78.0-98.0); Mean Platelet Volume 8.4 fL (7.4-10.4); Platelet Count 427 10x3/uL (130-400); RBC Distribution Width 13.1 % (11.5-14.5); Red Blood Cell (RBC) Count 3.33 mill/uL (4.70-6.10)
[2024-06-21 05:36] LABS: Anion Gap 9 mmol/L (10-20); BUN (Urea Nitrogen) 33 mg/dL (8.4-25.7); Calc. Creatinine Clearance 41 mL/min (70-130); Calcium 9.1 mg/dL (7.8-10.44); Carbon Dioxide 23 mmol/L (23-31); Chloride 102 mmol/L (98-107); Estimated GFR 53; Glucose 107 mg/dL (83-110); Magnesium 2.1 mg/dL (1.6-2.6); Potassium 4.1 mmol/L (3.5-5.1); Sodium 130 mmol/L (136-145)
[2024-06-22 05:00] LABS: Anion Gap 11 mmol/L (10-20); BUN (Urea Nitrogen) 36 mg/dL (8.4-25.7); Calc. Creatinine Clearance 40 mL/min (70-130); Calcium 8.8 mg/dL (7.8-10.44); Carbon Dioxide 21 mmol/L (23-31); Chloride 101 mmol/L (98-107); Estimated GFR 50; Glucose 100 mg/dL (83-110); Potassium 4.3 mmol/L (3.5-5.1); Sodium 129 mmol/L (136-145)
[2024-06-22] MEDS: Magnesium 2 GM/50 ML(in water) 2 GM in Premix 1 BAG IVPB SCH (08:04)
[2024-06-23 04:55] LABS: Anion Gap 9 mmol/L (10-20); BUN (Urea Nitrogen) 34 mg/dL (8.4-25.7); Calc. Creatinine Clearance 37 mL/min (70-130); Calcium 8.8 mg/dL (7.8-10.44); Carbon Dioxide 24 mmol/L (23-31); Chloride 101 mmol/L (98-107); Estimated GFR 46; Glucose 101 mg/dL (83-110); Magnesium 2.2 mg/dL (1.6-2.6); Potassium 4.3 mmol/L (3.5-5.1); Sodium 130 mmol/L (136-145)
[2024-06-23] MEDS ORDERED: PROPOFOL 200 MG/20 ML VIAL ONE (08:36)
[2024-06-23] MEDS ORDERED: Lidocaine 1% PF 5 ML VIAL ONE (08:36)
[2024-06-23] MEDS: Amiodarone 200 MG TAB PO SCH (09:39)
[2024-06-23] MEDS: Amlodipine 5 MG TAB PO SCH (16:30)
[2024-06-24 04:44] LABS: Anion Gap 12 mmol/L (10-20); BUN (Urea Nitrogen) 35 mg/dL (8.4-25.7); Calc. Creatinine Clearance 36 mL/min (70-130); Calcium 8.9 mg/dL (7.8-10.44); Carbon Dioxide 24 mmol/L (23-31); Chloride 101 mmol/L (98-107); Estimated GFR 44; Glucose 91 mg/dL (83-110); Magnesium 2.1 mg/dL (1.6-2.6); Potassium 4.2 mmol/L (3.5-5.1); Sodium 133 mmol/L (136-145)
[2024-06-24] MEDS: Amlodipine 5 MG TAB PO SCH (09:14)
[2024-06-24 13:46] VITALS: BMI 21.8
[2024-06-25 05:10] LABS: Anion Gap 11 mmol/L (10-20); BUN (Urea Nitrogen) 30 mg/dL (8.4-25.7); Calc. Creatinine Clearance 41 mL/min (70-130); Calcium 9.4 mg/dL (7.8-10.44); Carbon Dioxide 24 mmol/L (23-31); Chloride 102 mmol/L (98-107); Estimated GFR 52; Glucose 92 mg/dL (83-110); Magnesium 2.1 mg/dL (1.6-2.6); Potassium 4.1 mmol/L (3.5-5.1); Sodium 133 mmol/L (136-145)
[2024-06-26 05:16] LABS: Anion Gap 10 mmol/L (10-20); BUN (Urea Nitrogen) 31 mg/dL (8.4-25.7); Calc. Creatinine Clearance 41 mL/min (70-130); Calcium 9.1 mg/dL (7.8-10.44); Carbon Dioxide 24 mmol/L (23-31); Chloride 104 mmol/L (98-107); Estimated GFR 51; Glucose 105 mg/dL (83-110); Magnesium 2.1 mg/dL (1.6-2.6); Potassium 4.1 mmol/L (3.5-5.1); Sodium 134 mmol/L (136-145)
[2024-06-26 11:51] VITALS: BP 126/62; TEMP 97.5
== END 2024-06-26 11:57 | DRG 309 ==
LOC: ERS 12:24 → IMCU/EMU 16:53 → 2NO 06-23 19:35
PROVIDERS: ADMIT Family Medicine; ATTEND Hospitalist
PROC: 5A2204Z Restoration of Cardiac Rhythm, Single (ICD-10-PCS; principal; 2024-06-23)
DX: I48.21 Permanent atrial fibrillation (principal); E44.0 Moderate protein-calorie malnutrition; E87.1 Hypo-osmolality and hyponatremia; I24.89 Other forms of acute ischemic heart disease; N18.31 Chronic kidney disease, stage 3a; I12.9 Hypertensive chronic kidney disease with stage 1 through stage 4 chronic kidney disease, or unspecified chronic kidney disease; Z90.49 Acquired absence of other specified parts of digestive tract; Z98.890 Other specified postprocedural states; Z66 Do not resuscitate; N40.0 Benign prostatic hyperplasia without lower urinary tract symptoms; Z79.899 Other long term (current) drug therapy; Z88.0 Allergy status to penicillin; Z79.01 Long term (current) use of anticoagulants; E78.00 Pure hypercholesterolemia, unspecified; D63.1 Anemia in chronic kidney disease
CPT/HCPCS: 36415; 36416; 71045; 80048; 80053; 81001; 83735; 83880; 84443; 84484; 85025; 85610; 85730; 92960; 93005; 96365; 96376; J0282; J2704; J3475; J7070

== ENCOUNTER → 2024-12-31 | Day surgery (SDC) | payer MEDICARE, BC ==
[~2024-12-31] MED LIST: Lidocaine 1% w/Epinephrine 1:100K 20 ML VIAL ONE; Sodium Bicarbonate 2.5 MEQ/5 ML SDV ONE
[2024-12-31 08:47] LABS: #Basophils 0.06 10x3/uL (0.0-0.2); #Eosinophils 0.58 10x3/uL (0.0-0.7); #Monocytes 0.74 10x3/uL (0.11-0.59); #Neutrophils 5.42 10x3/uL (1.40-6.50); %Basophils 0.6 % (0.0-1.0); %Eosinophils 5.7 % (0.0-10.0); %Lymphocytes 32.7 % (21.0-51.0); %Monocytes 7.3 % (0.0-10.0); %Neutrophils 53.3 % (42.0-75.0); Hematocrit 37.3 % (42.0-52.0); Hemoglobin 12.5 g/dL (14.0-18.0); Mean Corpuscular Hemoglobin 33.2 pg (27.0-31.0); Mean Corpuscular Volume 98.9 fL (78.0-98.0); Platelet Count 202 10x3/uL (130-400); Red Blood Cell (RBC) Count 3.77 mill/uL (4.70-6.10); White Blood Cell (WBC) Count 10.17 10x3/uL (4.8-10.8)
[2024-12-31 09:04] LABS: INR-International Normal Ratio 1.1; PTT 30.2 sec (22.9-36.1); Prothrombin Time 14.2 sec (12.0-14.7)
== END ==
LOC: CT 08:25
PROVIDERS: ATTEND Radiology Radiation Oncology
PROC: 0QB03ZX Excision of Lumbar Vertebra, Percutaneous Approach, Diagnostic (ICD-10-PCS; principal; 2024-12-31)
DX: C41.2 Malignant neoplasm of vertebral column (principal); I10 Essential (primary) hypertension; Z90.49 Acquired absence of other specified parts of digestive tract; Z88.0 Allergy status to penicillin; I48.91 Unspecified atrial fibrillation
CPT/HCPCS: 20225; 36000; 77012 ×2; 85025; 85610; 85730; 88333; J2250; 36415; 88305; 88341; 88342; 99152; 99153; J3010

== ENCOUNTER 2025-01-28 13:38 | Outpatient (CLI) | payer MEDICARE, BC ==
[2025-01-30 08:28] LABS: Estimated GFR - POC 36.0
== END 2025-01-28 13:39 | disposition home or self-care (01) ==
LOC: MRI 13:38
PROVIDERS: ATTEND Radiology Radiation Oncology
DX: C79.51 Secondary malignant neoplasm of bone (principal); M89.9 Disorder of bone, unspecified; M48.061 Spinal stenosis, lumbar region without neurogenic claudication; M48.8X6 Other specified spondylopathies, lumbar region
CPT/HCPCS: 36415; 72158; 82565

== ENCOUNTER 2025-04-06 14:29 | Outpatient (CLI) | payer MEDICARE, BC ==
[~2025-04-06 14:29] MED LIST changes: +Iopamidol 370 76% 100 ML VIAL ONE; -Lidocaine 1% w/Epinephrine 1:100K 20 ML VIAL ONE; -Sodium Bicarbonate 2.5 MEQ/5 ML SDV ONE
[2025-04-06 14:49] LABS: Estimated GFR - POC 31.0
== END 2025-04-06 14:30 | disposition home or self-care (01) ==
LOC: CT 14:29
PROVIDERS: ATTEND Nurse Practitioner Family
DX: I77.810 Thoracic aortic ectasia (principal); I71.21 Aneurysm of the ascending aorta, without rupture; N28.89 Other specified disorders of kidney and ureter
CPT/HCPCS: 36415; 71275; 82565; Q9967